=== PATIENT | female | born 1985 | race Caucasian/White ===

== ENCOUNTER 2023-08-14 09:39 | Outpatient (CLI) | payer MEDICAID, SELFPAY ==
--- NOTE | 2023-08-14 09:49 | US_ITS ---
PROCEDURE: US TRANSVAGINAL CLINICAL INDICATION: Heavy Periods/Bleeding -Possible Fibroids COMPARISON: No exams were available for comparison FINDINGS: Transvaginal and transabdominal sonographic images of the pelvis were obtained. UTERUS: 10.1cm x 7.1cmx 4.1cm with a combined endometrial thickness of 10.6mm. There are multiple nabothian cysts in the cervix. The largest measures 1.64 cm. There is a fundal posterior fibroid measuring 2.2 cm x 2.4 cm x 1.7 cm. The endometrium appears markedly thickened on the transverse view. It measures 25 mm. LEFT OVARY: 5.2cmx4.0cmx2.6cm with a volume of 27.7ml. There is a dominant follicle in the left ovary measuring 1.4 cm x 1.5 cm x 1.6 cm. RIGHT OVARY: 4.9x 2.3cmx2.1cm with a volume of 12.4ml. There are multiple small follicles on the right ovary. There is a cystic area medial to the right ovary measuring 0.9 cm x 1.0 cm x 0.8 cm. Possible tubal cyst. Both ovaries are seen and appear normal. Doppler flow to both ovaries are seen. There is no fluid in the cul-de-sac. IMPRESSION: 1. Anteverted bulky uterus with a 2.4 cm fundal posterior fibroid. 2. There are multiple nabothian cysts in the cervix. The largest is 1.64 cm. 3. On the transverse view the endometrium is markedly thickened at 25 mm. Suggest endometrial sampling. 4. Both ovaries are seen and appear normal. The right ovary has multiple small follicles. 5. The left ovary has a dominant follicle measuring 1.6 cm. 6. No fluid in the cul-de-sac. Dictated by: Mc Pandey MD 08/14/2023 12:19 Mc Pandey MD in [facility] 08/14/2023 12:19
== END 2023-08-14 23:59 ==
LOC: RAD 09:39
PROVIDERS: PCP Family Medicine; Visit Provider Nurse Practitioner Obstetrics & Gynecology
DX: N92.0 Excessive and frequent menstruation with regular cycle (principal); N93.9 Abnormal uterine and vaginal bleeding, unspecified
CPT/HCPCS: 76830